=== PATIENT | female | born 2000 | race Caucasian/White ===

== ENCOUNTER 2019-02-24 16:22 | Emergency (ER) | payer OTHER, BC ==
[2019-02-24 16:30] VITALS: BP 117/76; PULSE 79; RESP 18; TEMP 98.6
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
[2019-02-24] MEDS ORDERED: ACETAMINOPHEN TAB 500 MG TAB PO STA (17:27)
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
--- NOTE | 2019-02-24 17:41 | XR ---
PROCEDURE: XR foot limited RT - 2V DATE AND TIME: 02/24/2019 5:22 PM CLINICAL INDICATION: PHH; Pain TECHNIQUE: Department protocol COMPARISON: None FINDINGS: There is no fracture or malalignment. The soft tissues are unremarkable. IMPRESSION: NO ACUTE PROCESS.
--- NOTE | 2019-02-24 17:43 | XR ---
PROCEDURE: XR tibia fibula bilateral - 4V DATE AND TIME: 02/24/2019 5:22 PM CLINICAL INDICATION: PHH; Pain TECHNIQUE: Department protocol COMPARISON: None FINDINGS: PA and lateral views of the right tibia-fibula and left tibia fibula were obtained from the knee to the ankle. There is no fracture or malalignment. The soft tissues are unremarkable. IMPRESSION: NO ACUTE PROCESS, BILATERAL TIBIA-FIBULA.
== END 2019-02-24 18:04 | disposition home or self-care (01) ==
LOC: EC 16:22
DX: S80.12XA Contusion of left lower leg, initial encounter (principal); S80.11XA Contusion of right lower leg, initial encounter; F32.9 Major depressive disorder, single episode, unspecified; Z79.899 Other long term (current) drug therapy; V43.52XA Car driver injured in collision with other type car in traffic accident, initial encounter; W22.11XA Striking against or struck by driver side automobile airbag, initial encounter; Y92.410 Unspecified street and highway as the place of occurrence of the external cause; Y99.0 Civilian activity done for income or pay
CPT/HCPCS: 71046; 99284